=== PATIENT | male | born 1970 | race Caucasian/White ===

== ENCOUNTER → 2021-07-15 13:16 | Outpatient (BNVA) | payer BC, SELFPAY | PROVIDERS: Visit Provider Nurse Practitioner Family | DX: Z20.822 Contact with and (suspected) exposure to COVID-19 (principal) | CPT/HCPCS: 87635 ==

== ENCOUNTER → 2023-01-22 14:18 | Outpatient (BNVA) | payer BC, SELFPAY | PROVIDERS: PCP Internal Medicine; Visit Provider Internal Medicine | DX: R07.9 Chest pain, unspecified (principal) | CPT/HCPCS: 93005 ==

== ENCOUNTER 2023-02-18 06:37 | Outpatient (CLI) | payer BC, SELFPAY ==
--- NOTE | 2023-02-18 07:00 | USCV_ITS ---
Maxim Jones Age: 53 Gender: M : 1970 Exam Date: 02/18/2023 07:03 Ordering Phys: Obey Rodriguez M.D ([email or web address]) Technologist: Ambar Wells Exam Location: [facility] [place] Indication: CHEST PAIN AND SOB BP: 130 / 85 HR: 54 Rhythm: Sinus Technical Quality: Adequate MEASUREMENTS (Male / Female) Normal Values 2D ECHO LV Diastolic Diameter PLAX 4.0 cm 4.2 - 5.9 / 3.9 - 5.3 cm LV Systolic Diameter PLAX 3.1 cm LV Chamber Size 4.3 cm IVS Diastolic Thickness 1.0 cm 0.6 - 1.0 / 0.6 - 0.9 cm IVS Systolic Thickness 1.3 cm LVPW Diastolic Thickness 1.1 cm 0.6 - 1.0 / 0.6 - 0.9 cm LVPW Systolic Thickness 1.9 cm RV Chamber Size 3.6 cm LVOT Diameter 2.1 cm LV Ejection Fraction 2D Teich 42.0 % LV Ejection Fraction MOD 2C 46.9 % LV Ejection Fraction 2C AL 50.3 % LA Diameter 2.8 cm LA Width 2.4 cm LA Height 3.4 cm RA Width 3.4 cm RA Height 3.3 cm Aorta at Sinotubular Diameter 3.1 cm IVC Diameter 1.0 cm M-MODE Aortic Annulus Diameter 3.6 cm LA Ao Ratio MM 0.9 MV E Point Septal Separation 0.5 cm DOPPLER AV Peak Velocity 136.0 cm/s LVOT Peak Velocity 87.0 cm/s AV Area Cont Eq vti 2.5 cm squared AV Area Cont Eq pk 2.2 cm squared MV Area PHT 3.0 cm squared Mitral E to A Ratio 1.1 MV E' Velocity 37.5 cm/s Mitral E to MV E' Ratio 9.6 Mitral E to LV E' Lateral Ratio 8.5 Mitral E to LV E' Septal Ratio 11.2 TR Peak Velocity 206.2 cm/s TR Peak Gradient 17.0 mmHg TR Mean Velocity 156.2 cm/s TR Mean Gradient 10.6 mmHg TR Velocity Time Integral 50.8 cm TV Peak E Velocity 71.0 cm/s Right Atrial Pressure 3.0 mmHg Pulmonary Artery Systolic Pressu 20.0 mmHg RV Acceleration Time 0.1 s RV Ejection Time 0.3 s RV AcT/ET 0.4 FINDINGS Left Ventricle Left ventricle is normal in size. LV systolic function is normal with EF of 50 to 55%. No regional wall motion abnormalities are seen. Right Ventricle Normal in size and function Right Atrium Normal in size Left Atrium Normal in size Mitral Valve Mitral valve prolapse seen. No significant stenosis or regurgitation. Aortic Valve Structurally normal aortic valve. Mild aortic regurgitation. Tricuspid Valve Mild tricuspid regurgitation. Pulmonary artery systolic pressure is normal. Pulmonic Valve Not well visualized Pericardium Normal Aorta Normal in size IVC Appears to be normal CONCLUSIONS LV systolic function is normal with EF 50 to 55%. Mitral valve prolapse noted. No significant stenosis or regurgitation Mild aortic regurgitation Mild tricuspid regurgitation No comparison studies are available Obey Rodriguez MD (Electronically Signed) Final Date: 21 February 2023 15:29 S
== END 2023-02-18 06:38 | disposition home or self-care (01) ==
PROVIDERS: PCP Nurse Practitioner Family; Visit Provider Internal Medicine
DX: R07.9 Chest pain, unspecified (principal); R06.02 Shortness of breath; I34.1 Nonrheumatic mitral (valve) prolapse; I35.1 Nonrheumatic aortic (valve) insufficiency; I07.1 Rheumatic tricuspid insufficiency
CPT/HCPCS: 93306

== ENCOUNTER 2023-02-19 06:31 | Outpatient (CLI) | payer BC, SELFPAY ==
--- NOTE | 2023-02-19 | ECG_ITS ---
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 Interpretive Statements NAME OF STUDY: LEXISCAN SESTAMIBI STRESS TEST INDICATION: [Chest Pain] Procedure: At the baseline, the blood pressure was 130/89 mmHg with a heart rate of 74 bpm. The electrocardiogram showed normal sinus rhythm, normal axis with normal ST and T's. The Lexiscan was infused over a period of 20 seconds. A total of 0.4 mg of Lexiscan was infused. The stress phase was continued for a total of 5 minutes. Heart rate was at the end of stress phase was 89 bpm and a blood pressure of 159/112 mmHg. The EKG at the peak infusion revealed normal sinus rhythm with no significant ST-T wave changes. Significant artifact was noted as well. Sestamibi was injected 20 seconds after the Lexiscan infusion. Blood pressure at the end of recovery phase was 114/84 mmHg with a heart rate of 90 bpm. Conclusion: 1. Normal EKG response to Lexiscan infusion. Significant artifact was noted however grossly no major abnormalities. 2. No Lexiscan induced chest pain or cardiac arrhythmia. 3. Normal blood pressure and heart rate response. 4. Sestamibi/sestamibi perfusion scan pending; see separate report. Electronically Signed On 03-06-2023 14:02:55 CDT by Obey Rodriguez M.D. [email or web address]
[2023-02-19 06:39] VITALS: BMI 27.9
--- NOTE | 2023-02-19 06:55 | NMCV_ITS ---
NM graciela perf SPECT r/s* [id number] Maxim Jones Age: 53 Gender: M : 1970 Exam Date: 02/19/2023 06:55 Ordering Phys: Obey Rodriguez M.D ([email or web address]) Technologist: JOSE Hunt Exam Location: [facility] Indications: CHEST PAIN, SHORTNESS OF BREATH STRESS TEST Please see separate stress test report in [facility] for full findings IMAGE PROTOCOL Rest/Stress 1 Exercise Day Radiopharmaceutical Dose (mCi) Administration Site Administered by Rest: Tc-99m 11.0 IV JOSE Pathak Sestamivon Stress:Tc-99m 32.5 IV JOSE Pathak Sestamivon Rest: 19-Feb-2023 60 Discovery 630 Stress: 19-Feb-2023 30 Discovery 630 Radiopharmaceutical was injected at 85 % maximum heart rate. Images obtained in supine and prone position. SPECT RESULTS Technical Quality: Excellent Raw Data Analysis: Normal Image Corrections: No attenuation or motion correction applied Summed Stress Score: 0 Summed Rest Score: 0 Summed Difference Score: 0 PERFUSION FINDINGS SPECT images demonstrate homogeneous tracer distribution throughout the myocardium. FUNCTIONAL RESULTS (calculated via Gated SPECT) Stress Image LV EF (%): 69 Stress EDV (mL):90 TID: 0.78 Stress ESV (mL):28 FUNCTIONAL FINDINGS: There is normal left ventricular systolic function. IMPRESSIONS 1. Normal myocardial perfusion imaging with no evidence of ischemia 2. LV systolic function is normal Obey Rodriguez MD (Electronically Signed) Final Date: 21 February 2023 11:20 S
[2023-02-19 08:45] VITALS: BP 159/86; PULSE 82
== END 2023-02-19 06:32 | disposition home or self-care (01) ==
LOC: CDL 06:31
PROVIDERS: PCP Nurse Practitioner Family; Visit Provider Internal Medicine
DX: R07.9 Chest pain, unspecified (principal); R06.02 Shortness of breath
CPT/HCPCS: 36415; 78452; 93017; A9500

== ENCOUNTER → 2024-06-14 08:26 | Outpatient (BNVA) | payer BC, SELFPAY | PROVIDERS: PCP Nurse Practitioner Family; Visit Provider Orthopaedic Surgery | DX: M54.2 Cervicalgia (principal); R20.0 Anesthesia of skin; R20.2 Paresthesia of skin; M47.22 Other spondylosis with radiculopathy, cervical region | CPT/HCPCS: 72050 ==

== ENCOUNTER → 2024-07-01 09:18 | Outpatient (BNVA) | payer BC, SELFPAY | PROVIDERS: PCP Nurse Practitioner Family; Visit Provider Student in an Organized Health Care Education/Training Program | DX: M25.522 Pain in left elbow (principal); R20.0 Anesthesia of skin; R20.2 Paresthesia of skin; M25.521 Pain in right elbow; M77.12 Lateral epicondylitis, left elbow; M77.11 Lateral epicondylitis, right elbow; G56.23 Lesion of ulnar nerve, bilateral upper limbs | CPT/HCPCS: 73080 ==

== ENCOUNTER 2024-07-19 12:02 | Outpatient (CLI) | payer BC, SELFPAY ==
--- NOTE | 2024-07-19 12:15 | MR_ITS ---
WS: [id number] MRI LEFT ELBOW WITHOUT CONTRAST. COMPARISON: None Multiplanar, multisequence imaging is performed without contrast. No acute fractures or marrow edema. Radial head and neck are intact. Small hooklike osteophyte from t he medial humeral epicondyle. No associated edema. Biceps tendon is intact. Brachioradialis tendon is also normal. No muscle edema. No muscle atrophy. Common flexor tendon and the ulnar collateral ligament are normal signal. The hooklike osteophyte fro m the humeral condyle is closely associated with the common flexor tendon but there is no tear or dejuan ma. Radial collateral ligament is intact. There is a fluid gap at the insertion site of the common extens or tendon from the humeral epicondyle. Consistent with a high-grade/near complete tear. There is a sm all amount of adjacent soft tissue edema. Ulnar nerve in the cubital tunnel appears normal. There is no adjacent inflammation or enlargement. Visualized triceps tendon is normal. MR/MR elbow LT wo con* [id number] IMPRESSION: 1. High-grade tear of the common extensor tendon from the humeral epicondyle. 2. No joint effusion or marrow edema. 3. Normal ulnar nerve in the cubital tunnel. 4. Small hooklike osteophyte from the medial humeral epicondyle with no associ ated marrow edema or signal abnormality in the common flexor tendon.
--- NOTE | 2024-07-19 13:00 | MR_ITS ---
WS: [id number] MRI CERVICAL SPINE NONCONTRAST HISTORY: cervical pain COMPARISON: None available. Technique: Multiplanar, multisequence noncontrast imaging of the cervical spine. Less than 2 mm retrolisthesis of C3 on C4. Disc spaces are narrowed and desiccated. Endplate osteophy ulises at multiple levels. Signal within the cervical cord is normal. Visualized posterior fossa is unremarkable. Craniocervical junction, C1 and C2 relationship, odontoid process and soft tissues are normal. C2-C3: Normal. C3-C4: Moderate central disc protrusion with disc bulging and osteophytic ridging. Mild bilateral fac et arthritis. Disc contacts the ventral thecal sac. Mild central and bilateral foraminal stenosis. C4-C5: Diffuse osteophytic ridging and disc bulging with mild to moderate central and bilateral michelle inal stenosis. Bilateral facet arthritis. C5-C6: Osteophytic ridging with a small disc protrusion. Mild central stenosis. C6-C7: Mild annular disc bulging. C7-T1: Normal. Paraspinal soft tissue are normal. MR/MR cervical spin wo con* [id number] IMPRESSION: 1. Moderate spondylosis throughout the cervical spine. 2. C3-4: Mild central and bilateral foraminal stenosis due to central disc pro trusion with disc bulging and osteophytosis. 3. C4-5: Mild to moderate central with bilateral foraminal stenosis due to dis c osteophyte disease. 4. C5-6: Tiny central disc protrusion with mild central stenosis.
== END 2024-07-19 12:03 | disposition home or self-care (01) ==
LOC: RAD 12:03
PROVIDERS: PCP Nurse Practitioner Family; Visit Provider Student in an Organized Health Care Education/Training Program
DX: M47.892 Other spondylosis, cervical region (principal); M50.20 Other cervical disc displacement, unspecified cervical region; M50.21 Other cervical disc displacement, high cervical region; M50.321 Other cervical disc degeneration at C4-C5 level; M25.78 Osteophyte, vertebrae; M99.61 Osseous and subluxation stenosis of intervertebral foramina of cervical region; M67.824 Other specified disorders of tendon, left elbow; M25.722 Osteophyte, left elbow
CPT/HCPCS: 72141; 73221

== ENCOUNTER 2024-08-17 07:02 | Day surgery (SDC) | payer BC, SELFPAY ==
[2024-08-17] VITALS (10 sets, daily range): BP systolic 117–161; BP diastolic 75–97; PULSE 71–100; RESP 16; TEMP 36.3–36.6; O2SAT 93–97; BMI 29.4
--- NOTE | 2024-08-17 07:39 | ANES.PREANE2 ---
Pre-Anesthetic Assessment Height/Weight: Height 5 ft 10 in Weight 205 lb O2 Del Method Room Air 08/17/24 07:25 Preop Diagnosis: Cubital tunnel syndrome Operation Date: 08/17/24 08:45 Proposed Procedures p Cubital Tunnel Release(Left) - Urbano Rice, DO s Ulnar Nerve Transposition(Left) - Urbano Rice, DO Was Beta Vivian taken within 24 hours: N/A Was Clonidine taken within 24 hours: N/A Last intake: Intake Last Liquid Date 08/16/24 Last Liquid Time 23:00 Last Solid Date 08/16/24 Last Solid Time 21:00 Social No alcohol and No tobacco Exam alert, oriented x 3, clear to auscultation bilaterally and regular rate & rhythm Airway Submandibular: within normal limits Cervical ROM: within normal limits Mallampati: Class II Dentition: full Anesthetic Plan ASA status: 2 Anesthesia: MAC and Regional (specify below) Other: No prior issues with anesthesia NPO since yesterday History of hypertension on amlodipine, lisinopril and metoprolol, BB taken yesterday Type 2 diabetes on semaglutide. Last taken 08/10/2024 Negative stress test 2022, echo demonstrating EF 50 to 55% Plan for MAC with preop nerve block Medications/Allergies Home Medications Medication Instructions Recorded Confirmed Last Taken Type amlodipine 10 mg tablet 10 mg PO DAILY 07/15/21 08/16/24 08/14/24 History lisinopril 20 mg tablet 20 mg PO DAILY 07/15/21 08/16/24 08/16/24 History escitalopram oxalate 20 mg tablet 20 mg PO DAILY 12/11/21 08/16/24 08/14/24 History (Lexapro) dapagliflozin propanediol 10 mg 10 mg PO DAILY 01/22/23 08/16/24 08/15/24 History tablet (Farxiga) metoprolol tartrate 25 mg tablet 25 mg PO DAILY 01/22/23 08/16/24 08/16/24 History semaglutide 14 mg tablet (Rybelsus) 14 mg PO DAILY 01/22/23 08/16/24 08/10/24 History testosterone 2 pump topical DAILY 01/22/23 08/16/24 08/15/24 History hydrocodone 5 mg-acetaminophen 325 1 tab PO Q6H PRN pain 5 days #20 08/17/24 Unknown Rx mg tablet tabs ondansetron 4 mg disintegrating 4 mg PO Q8H PRN nausea and 08/17/24 Unknown Rx tablet vomiting 3 days #9 tabs Allergies Allergy/AdvReac Type Severity Reaction Status Date / Time No Known Allergies Allergy Verified 08/16/24 13:20 PFSH Anesthesia Medical History HTN (hypertension) Diabetes Family History Mother Hypertension Grandfather Postsurgical cardiac pacemaker in situ Social History Smoking and tobacco/nicotine status: never used tobacco/nicotine Alcohol intake: never Substance/Drug Use: never Data Anesthesia Cardiac Studies: Echocardiogram 02/18/23 Sestamibi Stress Test (Cardiology) 02/19/23
--- NOTE | 2024-08-17 07:52 | W.PM.OPSUD ---
Surgery/Procedure H&P Update DATE OF PROCEDURE: August 17, 2024 DATE H&P PERFORMED: 08/02/24 H&P UPDATE INFORMATION: I have reviewed H&P completed within last 30 days, I have examined patient prior to procedure and No changes to prior documentation PREOP DIAGNOSIS: Left elbow common extensor tendon origin tear, carpal tunnel syndrome, cubi PRIMARY INDICATION FOR PROCEDURE: Left elbow common extensor tendon origin tear, left carpal tunnel syndrome, left cubital tunnel syndrome PLANNED PROCEDURE: Operation Date: 08/17/24 08:45 Proposed Procedures p Cubital Tunnel Release(Left) - Urbano Menon DO s Ulnar Nerve Transposition(Left) - Urbano Menon DO
[2024-08-17] MEDS: ketorolac 30 mg/mL INJ IVP (08:11)
--- NOTE | 2024-08-17 08:13 | ANES.PROC ---
Anesthesia Procedures Procedure/Date: 08/17/24 Nerve Block ^: Nerve Block 1: Main Anesthesia: other (100 mcg fentanyl and 2 mg Versed) Time Out Performed: Yes Consent: requested by attending/covering physician and from patient Nerve block location: supraclavicular Anesthesia monitors applied: pulse oximetry, EKG, BP cuff and oxygen Nerve block position: supine Anesthetic Used: ropivicaine 0.5% Amount of anesthesia used (mL): 30 Ultrasound used to: recognize landmarks Nerve Stimulator Used?: Yes Interscalene/Femoral BLK: other needle (pjunk 4inch) Injection: neg aspiration of heme Patient Tolerated Procedure: well Complications: none Additional Comments: 4 mg Decadron added to block
[2024-08-17] MEDS: acetaminophen 1,000 MG/100 ML PIGGYBACK 400 MG IV (08:15)
[2024-08-17] MEDS: sodium chloride 0.9% 1,000 ML 30 ML IV (08:16)
[2024-08-17] MEDS: scopolamine 1.5 Patch 1 PATCH TRANSDERMA (08:19)
[2024-08-17 08:26] LABS: Glucose Point of Care 157 mg/dL (70-110)
[2024-08-17] MEDS: ceFAZolin 2,000 MG in sodium chloride 0.9% (plus) 50 ML 100 MG IV (09:09)
--- NOTE | 2024-08-17 11:24 | W.PM.BPON ---
Date of Procedure: 08/17/2024 Surgeon: Urbano Menon DO Slice Plug Cutter Operator Helper(s): Eleazar Menon PA-C Procedure(s) performed: Left carpal tunnel release Left cubital tunnel release Left elbow medial epicondyle osteophyte excision (left elbow medial epicondylectomy) Left elbow common extensor tendon debridement and repair Left elbow lateral epicondylectomy Findings of the procedure(s): Patient was found to have carpal tunnel syndrome and left cubital tunnel syndrome underwent procedure as planned without issues or complications did have a prominent osteophyte above the flexor pronator mass this was excised and made flush. Then subsequently performed a left elbow common extensor tendon debridement repair disease tendon and the complete tear off the lateral epicondyle was noted the subsequently underwent a left elbow lateral epicondylectomy in preparation for the wound bed as well as debridement repair of the common extensor tendon at this site patient placed in a long-arm splint underwent procedure as planned without issues or complications taken PACU stable condition. Estimated blood loss: 15 mL Specimen(s) removed: None Post-operative diagnosis: Left carpal tunnel syndrome, left cubital tunnel syndrome, prominent left elbow medial epicondyle osteophyte, left elbow common extensor tendon tear at the origin
--- NOTE | 2024-08-17 11:53 | W.PM.BPON ---
Date of Procedure: [August 17, 2024] Surgeon: [Dr. Lynsey DO] Nursing Educator(s): [Eleazar iniguez PA-C] Procedure(s) performed: [Left carpal tunnel release left cubital tunnel release Medial epicondyle osteophyte excision Left elbow common extensor tendon debridement and repair Lateral epicondylectomy] Findings of the procedure(s): [Left carpal tunnel syndrome and left cubital tunnel syndrome. No ulnar nerve subluxation with range of motion, so no ulnar nerve transposition needed. Medial epicondyle osteophyte and left elbow common extensor tendon tear and lateral epicondyle osteophyte. Procedure went well and as planned.] Estimated blood loss: [15 mL] Specimen(s) removed: [N/A] Post-operative diagnosis: [Left carpal tunnel syndrome and left cubital tunnel syndrome. Medial epicondyle osteophyte and left elbow common extensor tendon tear and lateral epicondyle osteophyte. ]
--- NOTE | 2024-08-17 11:59 | PM.PACU ---
PACU note Narrative: Patient is a 54-year-old male just underwent a left carpal tunnel and left cubital tunnel release with open condyle osteophyte excision and left elbow common extensor tendon debridement and repair and lateral epicondylectomy. Patient transferred to PACU in stable condition. Pain is well controlled. Dressingand splint on hand and arm is dry and in place. Patient's fingers are warm and well-perfused. normal cap refill under 2 seconds. Unable to assess sensation and motor due to residual block. Exam: awake Disposition: discharged
--- NOTE | 2024-08-17 13:20 | ANE.PACU2 ---
Inpatient post-anesthesia follow up: Airway intact: Yes Vital signs: Temperature 97.8 F Pulse Rate 76 Respiratory Rate 16 Blood Pressure 134/88 Pulse Oximetry 95 Oxygen Delivery Me thod Room Air Oxygen Flow Rate 8 Fraction of Inspir ed Oxygen Hydration adequate: Yes Nausea and vomiting: No Pain level: 1 Mental status: Baseline
--- NOTE | 2024-08-17 17:37 | PM.OP ---
Operative Report Date of procedure: August 17, 2024 Implants: Arthrex fiber tack DX suture anchor with 1.3 mm suture tape Surgeon: Urbano Menon DO Consulting Sales Executive: Eleazar Menon PA-C: PA was necessary for assistance in this case with hand positioning to execute the procedure, retraction and protection of neurovascular structures as well as to assist with wound closure and dressing application. Procedure: Procedure: Preoperative diagnosis? Left? carpal tunnel syndrome Left?Cubital?tunnel syndrome Left elbow common extensor tendon origin tear Left elbow prominent medial epicondyle osteophyte Postop Diagnosis: same Procedure done: Left carpal tunnel release Left cubital tunnel release Left elbow medial epicondyle osteophyte excision (left elbow medial epicondylectomy) Left elbow common extensor tendon debridement and repair Left elbow lateral epicondylectomy Surgeon: Urbano Menon DO Estimated blood loss: 15mL Tourniquet? 83 minutes IV fluids: 900 Complications: None Findings: See operative report narrative Condition: stable Disposition: same day Brief History: Patient's been seen and worked up in the outpatient setting and findings consistent with preoperative diagnosis.? Patient has? Left Carpal Tunnel Syndrome,left?cubital?tunnel syndrome, as well as tear of the left elbow common extensor tendon origin which has been worked up in the outpatient setting has physical exam findings consistent with this.? Patient's nerve study consistent with this.? Exam findings consistent with preoperative diagnosis.? Patient's failed conservative treatment.? As result through shared decision making agreed to proceed with Left carpal tunnel release , left?cubital?tunnel release with possible nerve transposition, left elbow common extensor tendon debridement and repair, possible medial epicondyle osteophyte excision. We talked about tx options as nonoperative and operative intervention.? Understands risk benefits complication alternatives surgical nonsurgical treatment options.? Understanding? risks pt agrees to proceed with surgical intervention. Understanding these risks pt agrees to proceed with surgery.? Consent obtained. Procedure: Patient seen evaluate in the preoperative holding area.? Consent was reviewed and signed with patient.? Correct extremity marked.? Patient seen evaluated by anesthesia department once cleared for surgery was then taken back to the operative suite placed in supine position all bony prominences well-padded patient properly secured to bed.? Left upper extremity placed onto armboard.? Nonsterile tourniquet applied Left upper arm.? Patient then underwent anesthesia per the anesthesia department.? Patient's Left upper extremity was then prepped and draped in standard orthopedic fashion.? Final timeout performed.? Patient received appropriate preoperative antibiotics. Esmarch was used exsanguinate the Left upper extremity.? Tourniquet was insufflated to 250 mmHg. A standard mini open?left carpal tunnel incision was made.? Starting distally at Tillman's cardinal?line in?line with the fourth ray extending proximally distal to the wrist crease centered over the carpal tunnel.? Sharp scalpel incision was made through skin and subcutaneous tissue.? Self-retaining retractor was placed and the palmar fascia was identified.? This was then split?longitudinally and direct visualization of the transverse carpal?ligament was then made.? I then utilizing scalpel feathered through the transverse carpal?ligament until I entered the floor of the transverse carpal tunnel?ligament into the carpal tunnel.? Next I switched to dissection scissors and completed my release of the transverse carpal?ligament distally with care to protect the recurrent motor branch.? I completely released into the palmar fat and until no entrapment was noted distally.? Care was made to protect the superficial palmar arch during my distal dissection.? Next I then placed a [place] underneath the transverse carpal tunnel?ligament to protect the contents of the carpal tunnel and subsequently utilizing dissection scissors under?loupe magnification completely released the transverse carpal?ligament proximally into the median antebrachial fascia.? Care was made to protect the palmar cutaneous branch by keeping my scissors curved ulnarly.? Once completely released, I then placed my [place] and had appropriate decompression of the carpal tunnel proximally as well as distally.? I then inspected the contents of the carpal tunnel which showed an hourglass shape of the median nerve showing its compression.? No masses were noted.? Tendons appeared healthy.? Wound was then thoroughly irrigated.? Next marked out the landmarks of the Left elbow of the medial epicondyle and olecranon and made a curvilinear incision following the course of the ulnar nerve at the medial aspect of the elbow.? Sharp scalpel incision was made through skin and subcutaneous tissue.? Next I switched to Littler dissection scissors and spread in plane of the medial antebrachial cutaneous nerve branching which was protected throughout this part of the dissection.? Then I directly came down over the fascia and identified the 2 heads of the FCU fascia and split this Left in the middle and subsequently identified my ulnar nerve distally.? This was then completely released distally under direct visualization and loupe magnification.? Once the nerve was then identified I then subsequently tracked this proximally and released this through Orlando's ligament as well as complete decompression of the nerve proximally all the way past the intermuscular septum.? The nerve was completely released and decompressed both proximally and distally.? Ulnar nerve neurolysis performed and completed both proximally and distally with dissection scissors.? I then took the elbow through range of motion and there was no instability or subluxating of the ulnar nerve.? This completed?cubital?tunnel release.? Right at the common flexor tendon origin off of the medial epicondyle there was a significant osteophyte prominence that appeared this could potentially be irritating or rubbing on the ulnar nerve. At this point in time I then subsequently protected the nerve as well as the common flexor tendon origin and utilized a rongeur to excise the medial epicondyle osteophyte excision this was removed in its entirety without any issues or complications I then this completed my medial work at the elbow and is thoroughly irrigated this and placed a sponge in this wound and proceeded with the lateral elbow incision. Next I subsequently marked out the lateral epicondyle at the patient's tender spot on the origin and tear of the common extensor tendon. At this point in time curvilinear incision was then made directly over this region. Sharp scalpel incision through skin and subcutaneous tissues which let the dissection scissors and dissected directly over top of the lateral epicondyle and the common extensor tendon. At this point in time I palpated the bony prominence of the lateral epicondyle I then midline of the common extensor tendon very little superficially split the fibers distally and then came deeper to bone at the site of the tear directly off of the common extensor origin I then peeled these back and immediately encountered the tear of the common extensor. There is significant degenerative scar tissue and attempts at this trying to heal this was then subsequently removed all by a rongeur as well as sharp scalpel excision dissection scissors had direct exposure of the bone utilized curette as well as rongeur to perform a lateral epicondylectomy as well as preparation for the extensor tendon repair. I debrided all nonviable tendon and came to healthy bleeding tendon at this point in time I then utilized an Arthrex 1.3 mm fiber tack DX suture anchor this was then drilled directly in plane at the origin of the lateral epicondyle this was subsequently drilled and then anchor was punched and set these had 2 suture limbs this was then whipstitched up and down the split of the tendon reapproximating this as well as pulling this into the lateral epicondyle anchor this was then tied down and had excellent fixation. I used the extra suture limb to close down the fascia running just slightly proximally. This completed my repair all excess suture was then cut. I then thoroughly irrigated the wound bed. ?Next the wound beds was thoroughly irrigated.? Tourniquet was deflated.? Hemostasis was satisfactory.? ?The incision was then closed in standard interrupted mattress fashion for the carpal tunnel incision the medial and lateral elbow incisions were then subsequently closed with 3-0 Vicryl and nylon suture. Dressing was Xeroform 4 x 4's ABD Curlex soft roll and an Raul wrap has a bulky soft dressing and long-arm splint.? Patient was then awakened from anesthesia and taken to PACU in stable condition. Disposition: Patient taken to PACU in stable condition recovering well.? Patient will receive appropriate discharge instructions as well as pain medication postoperatively.? We will follow-up with orthopedics in the office in 2 weeks.? Patient understands agrees with current plan.? All questions answered.? pt understands if any questions or concerns and contact the office for follow-up appointment..
== END 2024-08-17 13:20 | disposition home or self-care (01) ==
PROVIDERS: PCP Nurse Practitioner Family; Visit Provider Student in an Organized Health Care Education/Training Program
PROC: (CPT 64718; principal; 2024-08-17 08:45)
DX: G56.02 Carpal tunnel syndrome, left upper limb (principal); G56.22 Lesion of ulnar nerve, left upper limb; S56.512A Strain of other extensor muscle, fascia and tendon at forearm level, left arm, initial encounter; X58.XXXA Exposure to other specified factors, initial encounter; M25.722 Osteophyte, left elbow; E11.9 Type 2 diabetes mellitus without complications; Z79.4 Long term (current) use of insulin
CPT/HCPCS: 24359; 64718; 64721; 36416; 82962; C1713; J0131; J0690; J1885; J2704; J3010; J7030

== ENCOUNTER 2024-09-01 06:00 | Outpatient (CLI) | payer BC, SELFPAY | END 2024-09-01 23:59 | disposition home or self-care (01) | LOC: SPT 09-05 07:31 | PROVIDERS: Visit Provider Physician Assistant | DX: Z47.89 Encounter for other orthopedic aftercare (principal); G56.02 Carpal tunnel syndrome, left upper limb | CPT/HCPCS: L3908 ==

== ENCOUNTER → 2025-07-25 08:21 | Outpatient (BNVA) | payer BC, SELFPAY | PROVIDERS: Visit Provider Physician Assistant | DX: M75.32 Calcific tendinitis of left shoulder (principal); S49.90XA Unspecified injury of shoulder and upper arm, unspecified arm, initial encounter; X58.XXXA Exposure to other specified factors, initial encounter | CPT/HCPCS: 73030 ==

== ENCOUNTER 2025-08-22 07:48 | Outpatient (CLI) | payer BC, SELFPAY ==
--- NOTE | 2025-08-22 07:54 | MR_ITS ---
WS: [id number] MR shoulder LEFT arthrogram ORDER DATE: 08/22/2025 7:55 AM COMPARISON: None. HISTORY: M75.42 - Impingement syndrome of left shoulder CONTRAST: Intra-articular TECHNIQUE: Coronal T1 and T2 and PD. Sagittal T2 and PD fat-sat. Axial T2*and axial PD fat-sat. After intra-articular contrast axial T1, coronal T1, and sagittal T1 fat-sat FINDINGS: Advanced arthritis AC joint with fluid and edema. Subacromial spurring. Slight impingement on the supraspinatus. Chronic thinning of the supraspinatus and infraspinatus which appear intact. Tiny insertional tear distal supraspinatus. Small interstitial bursal surface tears supraspinatus. Teres minor and subscapularis appear intact. Medial subluxation/dislocation biceps tendon from the bicipital groove. Intra-articular biceps tendon appears intact. Moderate to advanced degenerative narrowing of the glenohumeral articulation. Labrum appears intact. No acute appearing labral tears. MR/MR shoulder LT wo/w con [id number] IMPRESSION: 1. Advanced arthritis AC joint with fluid and edema. Subacromial spurring impi nges the supraspinatus. 2. Tendinopathy supraspinatus and infraspinatus with a tiny insertional tear d istal supraspinatus. Chronic thinning. 3. Small interstitial bursal surface tears supraspinatus 4. Medial subluxation/dislocation of the biceps tendon from the bicipital groo ve. Intra-articular biceps tendon appears intact. 5. Glenoid labrum appears intact. 6. Advanced degenerative arthritis glenohumeral articulation.
--- NOTE | 2025-08-22 08:00 | IR_ITS ---
WS: [id number] SHOULDER ARTHROGRAM LEFT Fluoroscopic guided left shoulder arthrogram CLINICAL INFORMATION: M75.30 - Calcific tendinitis of unspecified shoulder COMPARISON: None. PROCEDURE: The procedure including risks, benefits and complications were discussed with the patient, who agreed to proceed. Using sterile technique, the patient was prepped and draped in the usual sterile fashion. After 1% lidocaine injection using fluoroscopic guidance, a 22-gauge spinal needle was advanced into the glenohumeral joint. Approximately 13 ml of a solution containing 10 ml normal saline, 5 ml Omnipaque 240, 5 ml 1% lidocaine, and 0.1 ml gadolinium was administered. No immediate complications. FLUOROSCOPY TIME: 1min [id number] # of spot films: 5 IR/IR arthrogram shoulderLT [id number] IMPRESSION: Uncomplicated fluoroscopic-guided left shoulder arthrogram. MRI to follow.
[2025-08-22] MEDS: gadobenate dimeglumine 20 mL vial 3 ML IV (10:17)
[2025-08-22] MEDS: iohexol 240 mg/mL 50 mL Btl 20 ML INTRA-ARTI (10:19)
== END 2025-08-22 07:49 | disposition home or self-care (01) ==
PROVIDERS: PCP Nurse Practitioner Family; Visit Provider Physician Assistant
DX: M75.32 Calcific tendinitis of left shoulder (principal); M75.42 Impingement syndrome of left shoulder; M19.012 Primary osteoarthritis, left shoulder; M75.102 Unspecified rotator cuff tear or rupture of left shoulder, not specified as traumatic; S43.082A Other subluxation of left shoulder joint, initial encounter; X58.XXXA Exposure to other specified factors, initial encounter
CPT/HCPCS: 23350; 73223; 77002; J9999